=== PATIENT | female | born 1985 | race Caucasian/White ===

== ENCOUNTER 2019-01-09 16:32 | Emergency (ER) | payer OTHER, MEDICAID ==
[~2019-01-09] VITALS: Ht 154.9 cm; Wt 89.8 kg
[2019-01-09] MEDS ORDERED: FLEXERIL PO (17:44)
[2019-01-09] MEDS ORDERED: NAPROSYN500 MG PO (17:44)
[2019-01-09 17:53] VITALS: BP 133/74
== END 2019-01-09 17:54 | disposition home or self-care (01) ==
LOC: M.ERS 16:32
DX: M25.512 Pain in left shoulder (principal); Z98.890 Other specified postprocedural states